=== PATIENT | male | born 1970 | race American Indian/Alaskan Native ===

== ENCOUNTER 2016-10-22 07:29 | Observation (INO) | payer OTHER ==
[2016-10-22 07:32] VITALS: BMI 36.6
--- NOTE | 2016-10-22 07:37 | ED PDOC ---
Arrival/HPI - General Historian: Patient - History of Present Illness Time/Duration: < week (2 days ) Severity Level: 5 Activities at Onset: Rest Context: Home <Laura Bishop - Last Filed: 10/22/16 09:56> <Deo Reyes - Last Filed: 10/22/16 16:33> - General Chief Complaint: Dizziness/Lightheaded Time Seen by Provider: 10/22/16 07:30 - Critical Care Narrative Critical Care (Text): 10/22/16 07:50 This is a 45Y M with PMH HTN and a.fib who has come in with lightheadedness x 2 days. He reports he feels it when he stands up. He also says he has been having blurred vision, but denies headaches. The patient says his PMD left 6 months ago and has not followed up since. He used to take lisinopril, but has not taken it in 6 months and has never been on Coumadin. As of now he denies CP , SOB, n/v/d, numbness/tingling. He says that he had some L sided chest pain a week ago while at rest. He used massage to help the pain and it eventually went away. He would like a referral to a PMD since he has not seen one in a while. ( Laura Bishop) Past Medical History - Provider Review Nursing Documentation Reviewed: Yes - Infectious Disease Hx of Infectious Diseases: None - Tetanus Immunization Tetanus Immunization: Up to Date - Cardiac Hx Hypertension: Yes - Psychiatric Hx Depression: No Hx Emotional Abuse: No Hx Physical Abuse: No Hx Substance Use: No - Past Surgical History Past Surgical History: No Previous - Surgical History Hx Orthopedic Surgery: Yes (knee) - Suicidal Assessment Feels Threatened In Home Enviroment: No <Laura Bishop - Last Filed: 10/22/16 09:56> Family/Social History - Physician Review Nursing Documentation Reviewed: Yes Family/Social History: Hypertension Smoking Status: Never Smoked Hx Alcohol Use: Yes Frequency of alcohol use: Socially Hx Substance Use: No Hx Substance Use Treatment: No <Laura Bishop - Last Filed: 10/22/16 09:56> Allergies/Home Meds <Laura Bishop - Last Filed: 10/22/16 09:56> <Deo Reyes - Last Filed: 10/22/16 16:33> Allergies/Adverse Reactions: Allergies No Known Allergies Allergy (Verified 10/22/16 07:32) Home Medications: Home Meds Medication Instructions Recorded Confirmed No Known Home Med 10/22/16 10/22/16 Review of Systems - Physician Review All systems were reviewed & negative as marked: Yes - Review of Systems Constitutional: Normal Eyes: Vision Changes ENT: Normal. absent: Hearing Changes Respiratory: Normal. absent: SOB, Cough, Sputum Cardiovascular: Normal. absent: Chest Pain, Palpitations, Edema Gastrointestinal: Normal. absent: Abdominal Pain, Diarrhea, Nausea, Vomiting Genitourinary Male: Normal. absent: Dysuria, Frequency, Hematuria Musculoskeletal: Normal. absent: Arthralgias, Back Pain Skin: Normal. absent: Rash, Skin Lesions Neurological: Dizziness. absent: Headache, Focal Weakness, Seizure Endocrine: Normal. absent: Polyuria, Polydipsia Psychiatric: Normal. absent: Anxiety, Depression <Laura Bishop - Last Filed: 10/22/16 09:56> Physical Exam Vital Signs Reviewed: Yes Temperature: Afebrile Blood Pressure: Hypertensive Pulse: Regular Respiratory Rate: Normal Appearance: Positive for: Well-Appearing, Non-Toxic, Comfortable Pain Distress: None Mental Status: Positive for: Alert and Oriented X 3 - Systems Exam Head: Present: Atraumatic, Normocephalic Pupils: Present: PERRL Extroacular Muscles: Present: EOMI Conjunctiva: Present: Normal Mouth: Present: Moist Mucous Membranes Neck: Present: Normal Range of Motion Respiratory/Chest: Present: Clear to Auscultation, Good Air Exchange. No: Respiratory Distress, Accessory Muscle Use Cardiovascular: Present: Regular Rate and Rhythm, Normal S1, S2. No: Murmurs Abdomen: Present: Normal Bowel Sounds. No: Tenderness, Distention, Peritoneal Signs Back: Present: Normal Inspection Upper Extremity: Present: Normal Inspection. No: Cyanosis, Edema Lower Extremity: Present: Normal Inspection. No: Edema Neurological: Present: GCS=15, CN II-XII Intact, Speech Normal Skin: Present: Warm, Dry, Normal Color. No: Rashes Psychiatric: Present: Alert, Oriented x 3, Normal Insight, Normal Concentration <Laura Bishop - Last Filed: 10/22/16 09:56> <Deo Reyes - Last Filed: 10/22/16 16:33> Vital Signs Temp Pulse Resp BP Pulse Ox 10/22/16 11:11 98.2 F 68 16 170/90 H 97 10/22/16 09:13 68 16 152/83 H 98 10/22/16 09:02 72 180/104 H 10/22/16 08:40 72 16 180/104 H 98 10/22/16 07:56 142/88 10/22/16 07:34 98.8 F 68 17 180/118 H 97 Medical Decision Making Re-evaluation Time: 10:00 - Lab Interpretations I have reviewed the lab results: Yes Interpretation: Abnormal lab values (mild leukopenia) - EKG Interpretation Interpreted by ED Physician: Yes Type: 12 lead EKG <Laura Bishop - Last Filed: 10/22/16 09:56> <Deo Reyes - Last Filed: 10/22/16 16:33> ED Course and Treatment: 10/22/16 07:40 Impression: This is a 45Y M with PMH HTN and a.fib here for lightheadedness and blurry vision x 2 days. He has not followed up with PMD or taken BP meds in 6 months. SBP noted to be in 180s. DDX: HTN, a.fib, carotid stenosis Plan: -- EKG -- CBC, CMP, U/A, Troponin -- Hydralazine IVP -- Reassess Prior Visits: Notes and results from previous visits were reviewed. Progress Note: Mild leukopenia and Mild CK elevation on labs. Patient will be admitted for syncopal work up. Spoke with Dr. Manzanares who accepts the patient. (Laura Bishop) Patient seen and examined with resident. Came up with treatment and disposition plan with resident. A 45 year old male with lightheadedness and blurry vision. In agreement with resident note, which includes further HPI details. Patient states at rest no visual symptoms, no lightheadedness. Hypertension noted but no headache or chest pain at rest. He reports intermittent chest discomfort over past few days. No calf pain. No hypoxia. No pleuritic chest pain. Initial EKG unremarkable. Has prior history of atrial fibrillation currently normal sinus rhythm. Nonsmoker. No prior hx of dvt or pe. There is lack of sob or hypoxia or chest pain currently or history of pleuritic pain. (Deo Reyes) - Lab Interpretations Lab Results: 10/22/16 07:00 10/22/16 07:00 Lab Results 10/22/16 08:30: Urine Color Yellow, Urine Appearance Clear, Urine pH 6.5, Ur Specific [place] 1.025, Urine Protein Trace H, Urine Glucose (UA) Negative, Urine Ketones Negative, Urine Blood Small H, Urine Nitrate Negative, Urine Bilirubin Negative, Urine Urobilinogen 1.0 H, Ur Leukocyte Esterase Negative, Urine RBC 1 - 3, Urine WBC 0 - 2, Ur Epithelial Cells 0 - 2, Urine Bacteria Few 10/22/16 07:00: Sodium 138, Potassium 3.6, Chloride 103, Carbon Dioxide 29, Anion Gap 10, BUN 14, Creatinine 0.9, Est GFR ( Amer) > 60, Est GFR (Non- Af Amer) > 60, Random Glucose 96, Calcium 9.0, Total Bilirubin 0.7, AST 30, ALT 27, Alkaline Phosphatase 71, Lactate Dehydrogenase 503, Total Creatine Kinase 387 H, CK-MB (CK-2) 2.2, CK-MB (CK-2) % Cancelled, Troponin I < 0.01, Total Protein 7.7, Albumin 4.3, Globulin 3.4, Albumin/Globulin Ratio 1.3 10/22/16 07:00: WBC 4.2 L, RBC 4.75, Hgb 14.7, Hct 40.3 L, MCV 84.8, MCH 30.9, MCHC 36.5, RDW 12.2, Plt Count 204, MPV 10.2 - RAD Interpretation Radiology Orders: 10/22/16 08:23 CHEST PORTABLE [RAD] Stat - EKG Interpretation EKG Interpretation (Text): 10/22/16 08:46 HR 60. Intervals within normal limits. NSR. (Laura Bishop) - Medication Orders Current Medication Orders: Acetaminophen (Tylenol 325mg Tab) 650 mg PO Q4H PRN PRN Reason: Pain, Mild (1-3) Last Admin: 10/22/16 14:22 Dose: 650 mg Re-Assess: MAR Pain/Vitals Document 10/22/16 15:35 RDS (Rec: 10/22/16 15:39 RDS [facility] [id number] Pain Reassessment Is This A Pain ReAssessment? Yes Sleep Is patient sleeping during reassessment? No Presence of Pain Presence of Pain No Aspirin (Aspirin Chewable) 81 mg PO DAILY [facility] Famotidine (Pepcid) 40 mg PO DAILY [facility] Heparin Sodium (Porcine) (Heparin) 5,000 units SC Q12 DI PRN Reason: Protocol Losartan Potassium (Cozaar) 100 mg PO DAILY DI Discontinued Medications Aspirin (Aspirin Chewable) 81 mg PO STAT STA Stop: 10/22/16 08:23 Last Admin: 10/22/16 09:02 Dose: 81 mg Hydralazine HCl (Apresoline) 10 mg IVP STAT STA Stop: 10/22/16 08:55 Last Admin: 10/22/16 09:02 Dose: 10 mg Losartan Potassium (Cozaar) 100 mg PO DAILY [facility] Losartan Potassium (Cozaar) 100 mg PO ONCE ONE Stop: 10/22/16 13:46 Last Admin: 10/22/16 14:03 Dose: 100 mg Valsartan (Diovan) 160 mg PO DAILY [facility] Last Admin: 10/22/16 14:34 Dose: <Laura Bishop - Last Filed: 10/22/16 09:56> - PA / RELIABILITY TECHNOLOGIST / Resident Statement MD/DO has reviewed & agrees with the documentation as recorded. MD/DO has examined the patient and agrees with the treatment plan. - Scribe Statement The provider has reviewed the documentation as recorded by the Scribe <Deo Reyes - Last Filed: 10/22/16 16:33> - Scribe Statement Treasure Degroot Provider Scribe Attestation: All medical record entries made by the Scribe were at my direction and personally dictated by me. I have reviewed the chart and agree that the record accurately reflects my personal performance of the history, physical exam, medical decision making, and the department course for this patient. I have also personally directed, reviewed, and agree with the discharge instructions and disposition. (Deo Reyes) Disposition/Present on Arrival - Present on Arrival Any Indicators Present on Arrival: No History of DVT/PE: No History of Uncontrolled Diabetes: No Urinary Catheter: No History of Decub. Ulcer: No History Surgical Site Infection Following: None - Disposition Have Diagnosis and Disposition been Completed?: Yes Disposition Time: 10:02 Patient Plan: Admission <Laura Bishop - Last Filed: 10/22/16 09:56> <Deo Reyes - Last Filed: 10/22/16 16:33> - Disposition Diagnosis: Hypertension, Pre-syncope Disposition: HOSPITALIZED Patient Problems: Current Active Problems Problem Status Onset Hypertension Acute Pre-syncope Acute Condition: GOOD
[2016-10-22 08:14] LABS: HEMATOCRIT 40.3 % (42.0-52.0); MEAN CELL VOLUME 84.8 fL (80.0-105.0); MEAN CORPUSCULAR HEMOGLOBIN 30.9 pg (25.0-35.0); MEAN CORPUSCULAR HGB CONC 36.5 g/dl (31.0-37.0); MEAN PLATELET VOLUME 10.2 fl (7.0-11.0); RED CELL DISTRIBUTION WIDTH 12.2 % (11.5-14.5); WHITE BLOOD COUNT 4.2 10^3/ul (4.5-11.0)
[2016-10-22 08:27] LABS: ALB/GLOB RATIO 1.3 (1.1-1.8); ALKALINE PHOSPHATASE 71 U/L (38-133); ALT/SGPT 27 U/L (7-56); AST/SGOT 30 U/L (15-59); BILIRUBIN,TOTAL 0.7 mg/dL (0.2-1.3); BLOOD UREA NITROGEN 14 mg/dL (7-21); CARBON DIOXIDE 29 mmol/L (21-33); CHLORIDE 103 mmol/L (98-107); GFR AFRICAN-AMERICAN > 60; GLUCOSE,RANDOM 96 mg/dL (70-110); POTASSIUM 3.6 mmol/L (3.6-5.0); SODIUM 138 mmol/L (132-148); TOTAL PROTEIN 7.7 g/dL (5.8-8.3)
--- NOTE | 2016-10-22 08:49 | RAD ---
HISTORY: chest pain COMPARISON: 09/12/2013 FINDINGS: LUNGS: No active pulmonary disease. PLEURA: No significant pleural effusion identified, no pneumothorax apparent. CARDIOVASCULAR: Normal. OSSEOUS STRUCTURES: No significant abnormalities. VISUALIZED UPPER ABDOMEN: Normal. OTHER FINDINGS: None. IMPRESSION: No active disease.
[2016-10-22 08:50] LABS: PH,URINE 6.5 (4.7-8.0); URINE BILIRUBIN NEGATIVE (NEGATIVE); URINE BLOOD SMALL (NEGATIVE); URINE GLUCOSE (UA) NEGATIVE (NEGATIVE); URINE KETONE NEGATIVE (NEGATIVE); URINE LEUKOCYTE ESTERASE NEGATIVE Leu/uL (NEGATIVE); URINE PROTEIN TRACE mg/dL (<30 mg/dL)
[2016-10-22 09:00] LABS: URINE APPEARANCE CLEAR (CLEAR); URINE COLOR YELLOW (YELLOW)
[2016-10-22 09:02] LABS: URINE EPITHELIAL CELLS 0 - 2 /hpf (0-5); URINE WBC 0 - 2 /hpf (0-6)
[2016-10-22 09:03] LABS: URINE BACTERIA FEW (NEG)
[2016-10-22 09:16] LABS: TROPONIN I < 0.01 ng/mL
--- NOTE | 2016-10-22 10:29 | CP.PCM.HP ---
<Katherine Moya - Last Filed: 10/23/16 13:23> History of Present Illness - History of Present Illness History of Present Illness: CC: I have been feeling dizzy, and I have headache. Patient is a 45 y/o AAM with PMH of htn and afib, medication non compliance presenting with dizziness and headache for the past 3 days. Patient states the dizziness occurs regardless of his position. Patient decided to come in today, because usually the dizziness resolves when relaxes, but today, it wouldn't go away. Patient denies falling, but states he felt like fainting. Patient states this headache is not the worst headache of his life. Patient suppose to be taking Lopressor for his htn and afib, however he stopped taking the med because it was affecting his erection. Patient admits to changes in vision for the past 5 months, admits to headache. Patient denies cp, sob, n/v/d. Patient denies dysurea. Patient reports he occasionally has lower extremities edema. Denies pillow orthopnea, denies claudication. PMH: HTN, Afib PSH: bilateral Meniscus tear repair FMH: mom and dad alive, no cardiac history. Social: denies alcohol, tobacco and illicit drug use. 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 Allergy: nkda. Home meds: none Present on Admission - Present on Admission Any Indicators Present on Admission: No History of DVT/PE: No History of Uncontrolled Diabetes: No Urinary Catheter: No Decubitus Ulcer Present: No Review of Systems - Constitutional Constitutional: As Per HPI - EENT Eyes: As Per HPI Nose/Mouth/Throat: As Per HPI - Cardiovascular Cardiovascular: Irregular Heart Rhythm (somtimes ), Pedal Edema (somtimes. ). absent: Chest Pain, Lightheadedness, Palpitations, Syncope - Respiratory Respiratory: As Per HPI - Gastrointestinal Gastrointestinal: As Per HPI - Genitourinary Genitourinary: As Per HPI - Reproductive: Male Reproductive:Male: As Per HPI - Musculoskeletal Musculoskeletal: As Per HPI - Integumentary Integumentary: As Per HPI - Neurological Neurological: As Per HPI - Psychiatric Psychiatric: As Per HPI - Endocrine Endocrine: As Per HPI Past Patient History - Infectious Disease Hx of Infectious Diseases: None - Tetanus Immunizations Tetanus Immunization: Up to Date - Past Social History Smoking Status: Never Smoked Alcohol: None Drugs: Denies Home Situation {Lives}: With Family - CARDIAC Hx Hypertension: Yes - PSYCHIATRIC Hx Depression: No Hx Emotional Abuse: No Hx Physical Abuse: No Hx Substance Use: No - SURGICAL HISTORY Hx Orthopedic Surgery: Yes (knee) Meds Allergies/Adverse Reactions: Allergies Allergy/AdvReac Type Severity Reaction Status Date / Time No Known Allergies Allergy Verified 10/22/16 07:32 Physical Exam - Constitutional Appears: No Acute Distress - Head Exam Head Exam: ATRAUMATIC, NORMAL INSPECTION, NORMOCEPHALIC - Eye Exam Eye Exam: EOMI, Normal appearance, PERRL. absent: Scleral icterus - ENT Exam ENT Exam: Mucous Membranes Moist - Neck Exam Neck exam: Positive for: Normal Inspection - Respiratory Exam Respiratory Exam: Clear to Auscultation Bilateral, NORMAL BREATHING PATTERN. absent: Rales, Rhonchi, Wheezes, Respiratory Distress, Stridor - Cardiovascular Exam Cardiovascular Exam: REGULAR RHYTHM, RRR, +S1, +S2. absent: Irregular Rhythm, Systolic Murmur - GI/Abdominal Exam GI & Abdominal Exam: Normal Bowel Sounds, Soft. absent: Distended, Firm, Guarding, Rigid, Tenderness - Extremities Exam Extremities exam: Positive for: pedal edema (+1) - Back Exam Back exam: NORMAL INSPECTION - Neurological Exam Neurological exam: Alert, Oriented x3 - Psychiatric Exam Psychiatric exam: Normal Affect, Normal Mood - Skin Skin Exam: Dry, Intact, Normal Color, Warm Results - Vital Signs Recent Vital Signs: Last Vital Signs Temp 98.8 F 10/22/16 07:34 Pulse 68 10/22/16 09:13 Resp 16 10/22/16 09:13 BP 152/83 H 10/22/16 09:13 Pulse Ox 98 10/22/16 09:13 - Labs Result Diagrams: 10/23/16 10:15 10/23/16 10:15 Labs: Laboratory Results - last 24 hr 10/22/16 10/22/16 10/22/16 07:00 07:00 08:30 WBC 4.2 L RBC 4.75 Hgb 14.7 Hct 40.3 L MCV 84.8 MCH 30.9 MCHC 36.5 RDW 12.2 Plt Count 204 MPV 10.2 Sodium 138 Potassium 3.6 Chloride 103 Carbon Dioxide 29 Anion Gap 10 BUN 14 Creatinine 0.9 Est GFR ( Amer) > 60 Est GFR (Non-Af Amer) > 60 Random Glucose 96 Calcium 9.0 Total Bilirubin 0.7 AST 30 ALT 27 Alkaline Phosphatase 71 Lactate Dehydrogenase 503 Total Creatine Kinase 387 H CK-MB (CK-2) 2.2 CK-MB (CK-2) % Cancelled Troponin I < 0.01 Total Protein 7.7 Albumin 4.3 Globulin 3.4 Albumin/Globulin Ratio 1.3 Urine Color Yellow Urine Appearance Clear Urine pH 6.5 Ur Specific [place] 1.025 Urine Protein Trace H Urine Glucose (UA) Negative Urine Ketones Negative Urine Blood Small H Urine Nitrate Negative Urine Bilirubin Negative Urine Urobilinogen 1.0 H Ur Leukocyte Esterase Negative Urine RBC 1 - 3 Urine WBC 0 - 2 Ur Epithelial Cells 0 - 2 Urine Bacteria Few - EKG Data EKG Interpreted by: Myself EKG shows normal: Sinus rhythm Rate: Normal Assessment & Plan - Assessment and Plan (Free Text) Assessment: Patient is a 45 y/o AAM with PMH of htn and afib, medication non compliance presenting with dizziness, and headache for the past 3 days. Plan: 1) Dizziness and headache with changes in vision likely secondary to uncontrolled htn - r/o CVA - will obtain non contrast CT - monitor on tele - ekg with NSR - troponin neg x1, will continue to trend - s/p asa in ed - BP control - will obtain tsh, free t4, lipid and hgba1c. 2) Uncontrolled htn - s/p hydralazine ivp in ed - started on cozaar - heart healthy diet - echo ordered - will continue to monitor and adjust meds accordingly. 3) DVT and GI prophylaxis: heparin sc, and pepcid. Patient seen, examined, case discussed with Dr Manzanares. - Date & Time Date: 10/22/16 Time: 12:10 <Miguel Manzanares - Last Filed: 11/13/16 15:02> Results - Vital Signs Recent Vital Signs: Last Vital Signs Temp 98 F 10/23/16 06:00 Pulse 62 10/23/16 13:07 Resp 20 10/23/16 06:00 BP 147/88 10/23/16 06:00 Pulse Ox 98 10/23/16 06:00 - Labs Result Diagrams: 10/23/16 10:15 10/23/16 10:15 Attending/Attestation - Attestation I have personally seen and examined this patient.: Yes I have fully participated in the care of the patient.: Yes I have reviewed all pertinent clinical information: Yes Notes (Text): 11/13/16 15:02 Medical record note made by the resident after discussion with my direction and input after the patient was personally seen and examined by me. I have reviewed the chart and agree that the record accurately reflects by personal performance of the history, physical exam, data review, and medical decision-making, in the course for the patient. I have also personally directed the plan of care.
--- NOTE | 2016-10-22 12:40 | CARD ---
APPROVED REPORT EKG Measurement Heart [id number] <Conclusion> Normal sinus rhythm Nonspecific T wave abnormality Abnormal ECG
--- NOTE | 2016-10-22 13:53 | CON ---
DATE: 10/22/2016 HISTORY OF PRESENT ILLNESS: The patient is a 45-year-old male who presented with transient dizziness . All his symptoms have resolved. PAST MEDICAL HISTORY: Notable for hypertension in which he stopped medications at home. He has not been followed by a physician. In addition, the patient states he had atrial fibrillation in the past with no further known followup or treatment. He denies diabetes mellitus. Denies chest pain. Negative edema. No previous coronary syndrome in the past. SOCIAL HISTORY: The patient does not smoke. 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 REVIEW OF SYSTEMS: A 14-point review of systems was reviewed in detail. No cardiac symptomatology i s noted. PHYSICAL EXAMINATION: VITAL SIGNS: Blood pressure varies from 152-170 systolic, the heart rate in the 60s, normal sinus rh ythm. NECK: Negative JVD. LUNGS: Without rales. HEART: Reveals S1, S2. EXTREMITIES: Without edema. EKG shows nonspecific ST-T changes. No acute changes. LABORATORY DATA: Troponin is negative x 1. Hemoglobin is 14.7. IMPRESSION: 1. Transient dizziness which is now resolved. 2. Remote history of atrial fibrillation. The patient is currently in normal sinus rhythm. 3. History of hypertension. 4. Resolution of dizziness. Given these findings, we will obtain an echocardiogram. We will start the patient on antihypertensiv e medication. We will start Diovan. If the echocardiogram and his second troponin are negative, the patient can be discharged. Given his occupation, we will arrange for an outpatient stress test. Nic Dwyer MD cc: [id number] TT: 10/22/2016 13:53:10 Confirmation # [id number] Dictation # [id number] tn
[2016-10-22 14:10] LABS: FREE T4 0.98 ng/dL (0.78-2.19)
[2016-10-22 16:53] LABS: TROPONIN I < 0.01 ng/mL
--- NOTE | 2016-10-22 17:41 | CARD ---
APPROVED REPORT EXAM: Two-dimensional and M-mode echocardiogram with Doppler and color Doppler. INDICATION Dizziness and Vertigo Chest Pain 2D DIMENSIONS Left Atrium (2D)4.6 (1.6-4.0cm)IVSd1.3 (0.7-1.1cm) LVDd4.9 (3.9-5.9cm)PWd1.3 (0.7-1.1cm) LVDs3.4 (2.5-4.0cm)FS (%) 30.5 % LVEF (%)57.8 (>50%) M-Mode DIMENSIONS Aortic Root3.80 (2.2-3.7cm)Aortic Cusp Exc.2.00 (1.5-2.0cm) Aortic Valve AoV Peak Buioabqe802.0cm/Steve Peak GR.6mmHg Mitral Valve MV E Jpgzuhip78.5cm/sMV A Ruxgamuo20.0cm/sE/A ratio0.8 TDI Lateral E' Peak V3.90cm/sMedial E' Peak V5.95cm/sE/Lateral E'14.2 E/Medial E'9.3 Pulmonary Valve PV Peak Koezladu35.2cm/sPV Peak Grad.2mmHg Tricuspid Valve TR Peak Iifaiyyq554al/sRAP [id number] Peak Gr.23mmHg [id number] LEFT VENTRICLE The left ventricle is normal size. There is mild concentric left ventricular hypertrophy. The left ventricular function is normal. The left ventricular ejection fraction is within the normal range. There is normal LV segmental wall motion. Transmitral Doppler flow pattern is Grade I-abnormal relaxation pattern. RIGHT VENTRICLE The right ventricle is borderline dilated. There is normal right ventricular wall thickness. The right ventricular systolic function is normal. ATRIA The left atrium is borderline dilated. The right atrium size is normal. AORTIC VALVE The aortic valve is normal in structure. No aortic regurgitation is present. MITRAL VALVE The mitral valve is normal in structure. Mitral regurgitation is trace. TRICUSPID VALVE The tricuspid valve is normal in structure. There is trace tricuspid regurgitation. GREAT VESSELS The aortic root is normal in size. The IVC is normal in size and collapses >50% with inspiration. <Conclusion> The left ventricle is normal size. There is mild concentric left ventricular hypertrophy. The left ventricular function is normal. The left ventricular ejection fraction is within the normal range. There is normal LV segmental wall motion. Transmitral Doppler flow pattern is Grade I-abnormal relaxation pattern.
[2016-10-22 18:32] VITALS: RESP 20
[2016-10-22 22:58] LABS: TROPONIN I < 0.01 ng/mL
[2016-10-23 06:19] VITALS: BP 147/88; TEMP 98; O2SAT 98
--- NOTE | 2016-10-23 08:30 | CT ---
PROCEDURE: CT HEAD WITHOUT CONTRAST. HISTORY: r/o cva COMPARISON: None available. TECHNIQUE: Axial computed tomography images were obtained through the head/brain without intravenous contrast. Radiation dose: Total exam DLP = 709.98 mGy-cm. This CT exam was performed using one or more of the following dose reduction techniques: Automated exposure control, adjustment of the mA and/or kV according to patient size, and/or use of iterative reconstruction technique. FINDINGS: HEMORRHAGE: No intracranial hemorrhage. BRAIN: No mass effect or edema. No atrophy or chronic microvascular ischemic changes. Please note that MRI with diffusion imaging is more sensitive in the detection of acute ischemic event. VENTRICLES: No hydrocephalus. CALVARIUM: Unremarkable. PARANASAL SINUSES: Unremarkable as visualized. No significant inflammatory changes. MASTOID AIR CELLS: Unremarkable as visualized. No inflammatory changes. OTHER FINDINGS: None. IMPRESSION: No acute intracranial pathology identified. Please note that MRI with diffusion imaging is more sensitive in the detection of acute ischemic event.
[2016-10-23 10:16] LABS: ADD MANUAL DIFF? NO
[2016-10-23 10:26] LABS: BASO # 0.02 K/mm3 (0.0-2.0); BASO % 0.4 % (0.0-3.0); EOS # 0.1 (0.0-0.7); EOS % 1.5 % (1.5-5.0); GRAN # 2.74 (1.4-6.5); GRAN % 58.1 % (50.0-68.0); HEMATOCRIT 45.1 % (42.0-52.0); LYMPH # 1.6 (1.2-3.4); LYMPH % 32.8 % (22.0-35.0); MEAN CELL VOLUME 85.4 fL (80.0-105.0); MEAN CORPUSCULAR HEMOGLOBIN 30.7 pg (25.0-35.0); MEAN CORPUSCULAR HGB CONC 35.9 g/dl (31.0-37.0); MEAN PLATELET VOLUME 10.2 fl (7.0-11.0); MONO # 0.3 (0.1-0.6); MONO % 7.2 % (1.0-6.0); PLATELET COUNT 228 10^3/uL (120.0-450.0); RED CELL DISTRIBUTION WIDTH 12.4 % (11.5-14.5); WHITE BLOOD COUNT 4.7 10^3/ul (4.5-11.0)
[2016-10-23 10:28] LABS: BLOOD UREA NITROGEN 13 mg/dL (7-21); CALCIUM 9.7 mg/dL (8.4-10.5); CARBON DIOXIDE 29 mmol/L (21-33); CHLORIDE 100 mmol/L (95-110); CHOLESTEROL 236 mg/dL (130-200); GFR AFRICAN-AMERICAN > 60; GLUCOSE,RANDOM 80 mg/dL (70-110); SODIUM 136 mmol/L (132-148)
[2016-10-23 10:37] LABS: POTASSIUM 4.2 mmol/L (3.6-5.0)
--- NOTE | 2016-10-23 13:27 | PN ---
DATE: 10/23/2016 The patient is asymptomatic, chest pain-free, dizziness-free. PHYSICAL EXAMINATION: VITAL SIGNS: Blood pressure is 147/88, heart rate is in the 80s. NECK: Negative JVD. LUNGS: Without rales. HEART: Reveals S1, S2. EXTREMITIES: Without edema. LABORATORY DATA: Troponins are negative x 3. Echocardiogram reveals good LV function with LVH. IMPRESSION: 1. Accelerated hypertension, which is better on YASIR inhibitor. 2. Transient chest pain which is now resolved. 3. Dizziness which is now resolved. PLAN: Given these findings, the patient needs to be discharged on YASIR inhibitor. An outpatient stre ss test will be reordered. No evidence for acute coronary syndrome. Nic Dwyer MD cc: [id number] TT: 10/23/2016 13:26:25 Confirmation # [id number] Dictation # [id number] [id number]
--- NOTE | 2016-10-23 13:29 | CP.PCM.DIS ---
<HarikataylaKatherine - Last Filed: 10/24/16 06:34> Provider - Provider Date of Admission: 10/22/16 10:09 Attending physician: Doyle Pacheco MD Primary care physician: NO PRIMARY CARE PROVIDER Consults: Dr Dwyer- cardiology Time Spent in preparation of Discharge (in minutes): 45 Diagnosis - Discharge Diagnosis (1) Hypertension Status: Acute (2) Pre-syncope Status: Acute (3) Paroxysmal a-fib Status: Chronic Hospital Course - Lab Results Lab Results: Most Recent Lab Values WBC 4.7 10^3/ul (4.5-11.0) 10/23/16 10:15 RBC 5.28 10^6/uL (3.5-6.1) 10/23/16 10:15 Hgb 16.2 gm/dL (14.0-18.0) 10/23/16 10:15 Hct 45.1 % (42.0-52.0) 10/23/16 10:15 MCV 85.4 fL (80.0-105.0) 10/23/16 10:15 MCH 30.7 pg (25.0-35.0) 10/23/16 10:15 MCHC 35.9 g/dl (31.0-37.0) 10/23/16 10:15 RDW 12.4 % (11.5-14.5) 10/23/16 10:15 Plt Count 228 10^3/uL (120.0-450.0) 10/23/16 10:15 MPV 10.2 fl (7.0-11.0) 10/23/16 10:15 Gran % 58.1 % (50.0-68.0) 10/23/16 10:15 Lymph % (Auto) 32.8 % (22.0-35.0) 10/23/16 10:15 [place] % (Auto) 7.2 % (1.0-6.0) H 10/23/16 10:15 Eos % (Auto) 1.5 % (1.5-5.0) 10/23/16 10:15 Baso % (Auto) 0.4 % (0.0-3.0) 10/23/16 10:15 Gran # 2.74 (1.4-6.5) 10/23/16 10:15 Lymph # 1.6 (1.2-3.4) 10/23/16 10:15 [place] # 0.3 (0.1-0.6) 10/23/16 10:15 Eos # 0.1 (0.0-0.7) 10/23/16 10:15 Baso # 0.02 K/mm3 (0.0-2.0) 10/23/16 10:15 Sodium 136 mmol/L (132-148) 10/23/16 10:15 Potassium 4.2 mmol/L (3.6-5.0) 10/23/16 10:15 Chloride 100 mmol/L (95-110) 10/23/16 10:15 Carbon Dioxide 29 mmol/L (21-33) 10/23/16 10:15 Anion Gap 11 (10-20) 10/23/16 10:15 BUN 13 mg/dL (7-21) 10/23/16 10:15 Creatinine 0.9 mg/dL (0.5-1.4) 10/23/16 10:15 Est GFR ( Amer) > 60 10/23/16 10:15 Est GFR (Non-Af Amer) > 60 10/23/16 10:15 Random Glucose 80 mg/dL (70-110) 10/23/16 10:15 Hemoglobin A1c 5.1 % (4.2-6.5) 10/22/16 10:30 Calcium 9.7 mg/dL (8.4-10.5) 10/23/16 10:15 Total Bilirubin 0.7 mg/dL (0.2-1.3) 10/22/16 07:00 AST 30 U/L (15-59) 10/22/16 07:00 ALT 27 U/L (7-56) 10/22/16 07:00 Alkaline Phosphatase 71 U/L (38-133) 10/22/16 07:00 Lactate Dehydrogenase 481 U/L (333-699) 10/22/16 22:20 Total Creatine Kinase 338 U/L (35-230) H 10/22/16 22:20 CK-MB (CK-2) 1.9 ng/mL (0.0-3.6) 10/22/16 22:20 CK-MB (CK-2) % Cancelled 10/22/16 07:00 Troponin I < 0.01 ng/mL 10/22/16 22:20 Total Protein 7.7 g/dL (5.8-8.3) 10/22/16 07:00 Albumin 4.3 g/dL (3.0-4.8) 10/22/16 07:00 Globulin 3.4 gm/dL 10/22/16 07:00 Albumin/Globulin Ratio 1.3 (1.1-1.8) 10/22/16 07:00 Triglycerides 151 mg/dL (35-160) 10/23/16 10:15 Cholesterol 236 mg/dL (130-200) H 10/23/16 10:15 LDL Cholesterol Direct 137 mg/dL (0-129) H 10/23/16 10:15 HDL Cholesterol 69 mg/dL (29-60) H 10/23/16 10:15 Free T4 0.98 ng/dL (0.78-2.19) 10/22/16 10:30 TSH 3rd Generation 2.0 MIU/ml (0.46-4.68) 10/22/16 10:30 Urine Color Yellow (YELLOW) 10/22/16 08:30 Urine Appearance Clear (CLEAR) 10/22/16 08:30 Urine pH 6.5 (4.7-8.0) 10/22/16 08:30 Ur Specific [place] 1.025 (1.005-1.035) 10/22/16 08:30 Urine Protein Trace mg/dL (<30 mg/dL) H 10/22/16 08:30 Urine Glucose (UA) Negative mg/dL (NEGATIVE) 10/22/16 08:30 Urine Ketones Negative mg/dL (NEGATIVE) 10/22/16 08:30 Urine Blood Small (NEGATIVE) H 10/22/16 08:30 Urine Nitrate Negative (NEGATIVE) 10/22/16 08:30 Urine Bilirubin Negative (NEGATIVE) 10/22/16 08:30 Urine Urobilinogen 1.0 E.U./dL (<1 E.U./dL) H 10/22/16 08:30 Ur Leukocyte Esterase Negative Aashish/uL (NEGATIVE) 10/22/16 08:30 Urine RBC 1 - 3 /hpf (0-2) 10/22/16 08:30 Urine WBC 0 - 2 /hpf (0-6) 10/22/16 08:30 Ur Epithelial Cells 0 - 2 /hpf (0-5) 10/22/16 08:30 Urine Bacteria Few (NEG) 10/22/16 08:30 - Hospital Course Hospital Course: Patient is a 45 y/o with pmh of htn, and afib presented to [facility] with dizziness, headache and vision changes. Patient was suspected to have uncontrolled htn, secondary to medication non compliance. Patient was admitted for observation on tele floor. Patient's BP was controlled. Patient had CT to r/o acute cva which was negative for acute ischemic changes. Patient's ekg was normal sinus with no st/t waves, troponin was negative x3. Cardiology saw patient recommended echo, which was normal except for grade 1 diastolic dysfunction. tsh was normal, HGBA1C was 5.1, LDL was 137. Telemetry with occasional irregular heart beat, otherwise it was NSR. Patient to be discharged with cozaar 100 mg daily, low sodium diet, and heart healthy, and follow up with PMD. - Date & Time of H&P Date of H&P: 10/22/16 Time of H&P: 13:10 Discharge Exam - Head Exam Head Exam: ATRAUMATIC, NORMAL INSPECTION, NORMOCEPHALIC - Eye Exam Eye Exam: Normal appearance, PERRL. absent: Scleral icterus - ENT Exam ENT Exam: Mucous Membranes Moist - Neck Exam Neck exam: Normal Inspection - Respiratory Exam Respiratory Exam: Clear to PA & Lateral, NORMAL BREATHING PATTERN, UNREMARKABLE. absent: Rales, Rhonchi, Wheezes, Respiratory Distress, Stridor - Cardiovascular Exam Cardiovascular Exam: REGULAR RHYTHM, RRR, +S1, +S2. absent: Systolic Murmur - GI/Abdominal Exam GI & Abdominal Exam: Normal Bowel Sounds, Unremarkable. absent: Distended, Firm , Guarding, Rigid, Soft, Tenderness - Extremities Exam Extremities exam: normal inspection - Back Exam Back exam: NORMAL INSPECTION - Neurological Exam Neurological exam: Alert, Oriented x3 - Psychiatric Exam Psychiatric exam: Normal Affect, Normal Mood - Skin Skin Exam: Dry, Intact, Normal Color, Warm Discharge Plan - Discharge Medications Prescriptions: Losartan [Cozaar] 100 mg PO DAILY #30 tab - Follow Up Plan Condition: GOOD Disposition: HOME/ ROUTINE Instructions: Chest Pain (DC), Hypertension (DC) Additional Instructions: Please follow up with your PMD Call Dr Pacheco 's office to schedule Reduce salt intake Take your blood pressure medications as prescribed. Go tot he nearest emergency room if you experience cp, palpitation, dizziness or passed out. Nursing Follow up at [facility] for outpatient stress test on Friday2017 with Dr. Dwyer. make sure you bring the prescription with you If you begin to experience chest pain, shortness of breath, palpatiationm dizziness or pass out, return to the nearest emergency room or call 911. See care notes provided for further instructions Referrals: PCP,BRUNA [Primary Care Provider] - Doyle Pacheco MD [Staff Provider] - <Miguel Manzanares - Last Filed: 11/14/16 18:43> Provider - Provider Date of Admission: 10/22/16 10:09 Attending physician: Doyle Pacheco MD Primary care physician: BRUNA PRIMARY CARE PROVIDER Hospital Course - Lab Results Lab Results: Most Recent Lab Values WBC 4.7 10^3/ul (4.5-11.0) 10/23/16 10:15 RBC 5.28 10^6/uL (3.5-6.1) 10/23/16 10:15 Hgb 16.2 gm/dL (14.0-18.0) 10/23/16 10:15 Hct 45.1 % (42.0-52.0) 10/23/16 10:15 MCV 85.4 fL (80.0-105.0) 10/23/16 10:15 MCH 30.7 pg (25.0-35.0) 10/23/16 10:15 MCHC 35.9 g/dl (31.0-37.0) 10/23/16 10:15 RDW 12.4 % (11.5-14.5) 10/23/16 10:15 Plt Count 228 10^3/uL (120.0-450.0) 10/23/16 10:15 MPV 10.2 fl (7.0-11.0) 10/23/16 10:15 Gran % 58.1 % (50.0-68.0) 10/23/16 10:15 Lymph % (Auto) 32.8 % (22.0-35.0) 10/23/16 10:15 [place] % (Auto) 7.2 % (1.0-6.0) H 10/23/16 10:15 Eos % (Auto) 1.5 % (1.5-5.0) 10/23/16 10:15 Baso % (Auto) 0.4 % (0.0-3.0) 10/23/16 10:15 Gran # 2.74 (1.4-6.5) 10/23/16 10:15 Lymph # 1.6 (1.2-3.4) 10/23/16 10:15 [place] # 0.3 (0.1-0.6) 10/23/16 10:15 Eos # 0.1 (0.0-0.7) 10/23/16 10:15 Baso # 0.02 K/mm3 (0.0-2.0) 10/23/16 10:15 Sodium 136 mmol/L (132-148) 10/23/16 10:15 Potassium 4.2 mmol/L (3.6-5.0) 10/23/16 10:15 Chloride 100 mmol/L (95-110) 10/23/16 10:15 Carbon Dioxide 29 mmol/L (21-33) 10/23/16 10:15 Anion Gap 11 (10-20) 10/23/16 10:15 BUN 13 mg/dL (7-21) 10/23/16 10:15 Creatinine 0.9 mg/dL (0.5-1.4) 10/23/16 10:15 Est GFR ( Amer) > 60 10/23/16 10:15 Est GFR (Non-Af Amer) > 60 10/23/16 10:15 Random Glucose 80 mg/dL (70-110) 10/23/16 10:15 Hemoglobin A1c 5.1 % (4.2-6.5) 10/22/16 10:30 Calcium 9.7 mg/dL (8.4-10.5) 10/23/16 10:15 Total Bilirubin 0.7 mg/dL (0.2-1.3) 10/22/16 07:00 AST 30 U/L (15-59) 10/22/16 07:00 ALT 27 U/L (7-56) 10/22/16 07:00 Alkaline Phosphatase 71 U/L (38-133) 10/22/16 07:00 Lactate Dehydrogenase 481 U/L (333-699) 10/22/16 22:20 Total Creatine Kinase 338 U/L (35-230) H 10/22/16 22:20 CK-MB (CK-2) 1.9 ng/mL (0.0-3.6) 10/22/16 22:20 CK-MB (CK-2) % Cancelled 10/22/16 07:00 Troponin I < 0.01 ng/mL 10/22/16 22:20 Total Protein 7.7 g/dL (5.8-8.3) 10/22/16 07:00 Albumin 4.3 g/dL (3.0-4.8) 10/22/16 07:00 Globulin 3.4 gm/dL 10/22/16 07:00 Albumin/Globulin Ratio 1.3 (1.1-1.8) 10/22/16 07:00 Triglycerides 151 mg/dL (35-160) 10/23/16 10:15 Cholesterol 236 mg/dL (130-200) H 10/23/16 10:15 LDL Cholesterol Direct 137 mg/dL (0-129) H 10/23/16 10:15 HDL Cholesterol 69 mg/dL (29-60) H 10/23/16 10:15 Free T4 0.98 ng/dL (0.78-2.19) 10/22/16 10:30 TSH 3rd Generation 2.0 MIU/ml (0.46-4.68) 10/22/16 10:30 Urine Color Yellow (YELLOW) 10/22/16 08:30 Urine Appearance Clear (CLEAR) 10/22/16 08:30 Urine pH 6.5 (4.7-8.0) 10/22/16 08:30 Ur Specific [place] 1.025 (1.005-1.035) 10/22/16 08:30 Urine Protein Trace mg/dL (<30 mg/dL) H 10/22/16 08:30 Urine Glucose (UA) Negative mg/dL (NEGATIVE) 10/22/16 08:30 Urine Ketones Negative mg/dL (NEGATIVE) 10/22/16 08:30 Urine Blood Small (NEGATIVE) H 10/22/16 08:30 Urine Nitrate Negative (NEGATIVE) 10/22/16 08:30 Urine Bilirubin Negative (NEGATIVE) 10/22/16 08:30 Urine Urobilinogen 1.0 E.U./dL (<1 E.U./dL) H 10/22/16 08:30 Ur Leukocyte Esterase Negative Aashish/uL (NEGATIVE) 10/22/16 08:30 Urine RBC 1 - 3 /hpf (0-2) 10/22/16 08:30 Urine WBC 0 - 2 /hpf (0-6) 10/22/16 08:30 Ur Epithelial Cells 0 - 2 /hpf (0-5) 10/22/16 08:30 Urine Bacteria Few (NEG) 10/22/16 08:30 Attending/Attestation - Attestation I have personally seen and examined this patient.: Yes I have fully participated in the care of the patient.: Yes I have reviewed all pertinent clinical information, including history, physical exam and plan: Yes Notes (Text): 11/13/16 15:12 Medical record note made by the resident after discussion with my direction and input after the patient was personally seen and examined by me. I have reviewed the chart and agree that the record accurately reflects by personal performance of the history, physical exam, data review, and medical decision-making, in the course for the patient. I have also personally directed the plan of care.
[2016-10-23 15:12] VITALS: PULSE 62
== END 2016-10-23 15:08 | disposition home or self-care (01) ==
LOC: ED 07:29 → ERH 10:09 → 2RSO 11:54
PROVIDERS: ADMIT Internal Medicine; ATTEND Internal Medicine
DX: I10 Essential (primary) hypertension (principal); R07.9 Chest pain, unspecified; R42 Dizziness and giddiness; R55 Syncope and collapse; I48.0 Paroxysmal atrial fibrillation; Z91.14 Patient's other noncompliance with medication regimen
CPT/HCPCS: 36415; 70450; 71010; 80048; 80053; 80061; 81001; 82550; 82553; 83036; 83615; 84439; 84443; 84484; 85025; 85027; 93005; 93306; 96374; 99285; G0378; J0360; J1644

== ENCOUNTER 2017-09-17 09:14 | Emergency (ER) | payer OTHER ==
[2017-09-17 09:15] VITALS: BMI 36.6
[2017-09-17 09:22] VITALS: TEMP 98.7
--- NOTE | 2017-09-17 09:42 | ED PDOC ---
Arrival/HPI - General Chief Complaint: Lower Extremity Problem/Injury Time Seen by Provider: 09/17/17 09:33 Historian: Patient - History of Present Illness Narrative History of Present Illness (Text): 09/17/17 09:34 This 46 yo male with psh b/l knee meniscus surgery, presents to this emergency department complaining of left anterior knee joint pain since last night. Patient stated " I was doing something, and I twisted my left knee". Patient denies other somatic complains. Time/Duration: Other (see hpi) Context: Home Past Medical History - Provider Review Nursing Documentation Reviewed: Yes - Infectious Disease Hx of Infectious Diseases: None - Tetanus Immunization Tetanus Immunization: Up to Date - Cardiac Hx Hypertension: Yes - Musculoskeletal/Rheumatological Hx Falls: No - Psychiatric Hx Depression: No Hx Emotional Abuse: No Hx Physical Abuse: No Hx Substance Use: No - Past Surgical History Past Surgical History: No Previous - Surgical History Hx Orthopedic Surgery: Yes (knee) - Suicidal Assessment Feels Threatened In Home Enviroment: No Family/Social History - Physician Review Nursing Documentation Reviewed: Yes Family/Social History: Other (noncontributory) Smoking Status: Never Smoked Hx Alcohol Use: Yes Hx Substance Use: No Hx Substance Use Treatment: No Allergies/Home Meds Allergies/Adverse Reactions: Allergies No Known Allergies Allergy (Verified 09/17/17 09:16) Review of Systems - Review of Systems Constitutional: Normal. absent: Fatigue, Weight Change, Fevers Eyes: Normal ENT: Normal Respiratory: Normal Cardiovascular: Normal Gastrointestinal: Normal Genitourinary Male: Normal Musculoskeletal: Other (left knee pain) Skin: Normal Neurological: Normal Endocrine: Normal Hemo/Lymphatic: Normal Psychiatric: Normal Physical Exam Vital Signs Temp Pulse Resp BP Pulse Ox 09/17/17 09:18 98.7 F 88 16 152/107 H 97 Temperature: Afebrile Blood Pressure: Normal Pulse: Regular Respiratory Rate: Normal Appearance: Positive for: Well-Appearing, Non-Toxic, Comfortable Pain Distress: None Mental Status: Positive for: Alert and Oriented X 3 - Systems Exam Head: Present: Atraumatic, Normocephalic Pupils: Present: PERRL Extroacular Muscles: Present: EOMI Conjunctiva: Present: Normal Mouth: Present: Moist Mucous Membranes Neck: Present: Normal Range of Motion Upper Extremity: Present: Normal Inspection, Normal ROM Lower Extremity: Present: Normal Inspection, NORMAL PULSES, Normal ROM, Neurovascularly Intact, Capillary Refill < 2 s. No: Edema, CALF TENDERNESS, Linh's Sign, Tenderness, Swelling, Erythema, Deformity, Temperature Abnormalties Neurological: Present: GCS=15, CN II-XII Intact, Speech Normal Skin: Present: Warm, Dry, Normal Color. No: Rashes Psychiatric: Present: Alert, Oriented x 3, Normal Insight, Normal Concentration Medical Decision Making ED Course and Treatment: 09/17/17 10:03 Patient stated that he thinks knee cap "clicks". Knee immobilizer was ordered. Patient refused pain medication. 09/17/17 10:30 Knee x-rays: No Fx or dislocation. Mild djd. Re-evaluation Time: 10:31 Reassessment Condition: Re-examined, Improved - RAD Interpretation Radiology Orders: 09/17/17 10:02 KNEE WITH PATELLA LEFT 3 VIEW [RAD] Stat Disposition/Present on Arrival - Present on Arrival Any Indicators Present on Arrival: No History of DVT/PE: No History of Uncontrolled Diabetes: No Urinary Catheter: No History of Decub. Ulcer: No History Surgical Site Infection Following: None - Disposition Have Diagnosis and Disposition been Completed?: Yes Diagnosis: Knee pain, left anterior, Hypertension Disposition: HOME/ ROUTINE Disposition Time: 10:31 Patient Plan: Discharge Condition: IMPROVED Discharge Instructions (ExitCare): Low Salt Diet, Knee Pain (DC) Additional Instructions: Call private doctor for follow up visit in 1-2 days for knee pain, and high blood pressure revaluation. Call Private Orthopedist for revaluation in 3-5 days. Keep knee elevated, ice, rest, knee immobilizer for at least 5 days. Prescriptions: Ibuprofen [Motrin] 400 mg PO Q8H PRN #20 tab PRN Reason: Pain, Severe (8-10) Referrals: Doyle Pacheco MD [Primary Care Provider] - Follow up with primary Justyn Pace DO [Staff Provider] - Follow up with primary Forms: WORK NOTE, [employer] (Mongolian)
[2017-09-17 10:44] VITALS: BP 150/95; PULSE 82; RESP 18; O2SAT 100
--- NOTE | 2017-09-17 11:14 | RAD ---
PROCEDURE: Left knee dated 09/17/2017 HISTORY: Pain. COMPARISON: None. FINDINGS: BONES: No evidence of acute displaced fracture nor dislocation. Slight spurring lateral tibial spine. There are also what appear represent soft tissue calcifications adjacent to the within the medial soft tissues adjacent to to the medial compartment. JOINTS: Tiny posterior patellar osteophytes are also felt be present. . Joint spaces relatively preserved. JOINT EFFUSION: Suspect trace suprapatellar joint effusion. OTHER FINDINGS: None. IMPRESSION: No acute fractures. Minimal DJD with trace suprapatellar joint effusion.
== END 2017-09-17 10:44 | disposition home or self-care (01) ==
LOC: ED 09:14
DX: M25.562 Pain in left knee (principal); I10 Essential (primary) hypertension